=== PATIENT | female | born 2000 | race African-American/Black ===

== ENCOUNTER 2024-07-17 20:08 | Inpatient (IN) ==
[2024-07-17] MEDS ORDERED: hydrALAZINE INJ 20 MG/ML VIAL IVP PRN (21:17)
[2024-07-17] MEDS ORDERED: METHYLERGONOVINE 0.2 MG/ML VIAL IM PRN (21:17)
[2024-07-17] MEDS ORDERED: miSOPROStoL 200 MCG TABLET PR PRN (21:17)
[2024-07-17] MEDS ORDERED: ACETAMINOPHEN 500 MG TABLET PO PRN (21:17)
[2024-07-17] MEDS ORDERED: lidocaine 1% 20 ML MDV ID PRN (21:17)
[2024-07-17] MEDS ORDERED: fentaNYL 100 MCG/2 ML VIAL IVP PRN (21:17)
[2024-07-17] MEDS ORDERED: NIFEdipine 10 MG CAPSULE PO PRN (21:17)
[2024-07-17] MEDS ORDERED: TERBUTALINE 1 MG/ML VIAL SUBQ PRN (21:17)
[2024-07-17] MEDS ORDERED: TRANEXAMIC ACID IN NACL 1,000 MG/100 ML BAG IV PRN (21:17)
[2024-07-17] MEDS ORDERED: OXYTOCIN 10 UNIT/ML VIAL IM PRN (21:17)
[2024-07-17] MEDS ORDERED: ONDANSETRON ODT 4 MG TABLET PO PRN (21:17)
[2024-07-17] MEDS ORDERED: LABETALOL 20 MG/4 ML SYRINGE IVP PRN ×3 (21:17)
[2024-07-17] MEDS ORDERED: miSOPROStoL 200 MCG TABLET BC PRN (21:17)
[2024-07-17] MEDS ORDERED: SODIUM CHLORIDE FLUSH 0.9% 10 ML SYRINGE IVP PRN (21:17)
[2024-07-17] MEDS ORDERED: OXYTOCIN/SODIUM CHLORIDE 500 ML IV PRN (21:17)
[2024-07-17] MEDS ORDERED: METOCLOPRAMIDE 10 MG/2 ML VIAL IVP PRN (21:17)
--- NOTE | 2024-07-17 21:18 | HISTORY & PHYSICAL EXAMINATION ---
Admit History Visit Reason Visit Reason: Other (admitted for induction due to growth restrictions) : 2 Parity: 1 Care: positive [facility] and Other (in [facility] with [employer]. records reviewed last week.) Complications This : positive Other (recent ultrasound showing growth restriction. ) Smoking Status: Never smoker Mother's Labs Mother's Blood Type: positive O Mother's RH: positive Positive GBS: positive Group B Step Negative Rubella Status: positive Immune Other Maternal History Other Maternal History: admitted for labor induction due to fetus small on US on Monday. NDICATIONS: Uterine size-date discrepancy OUTSIDE/PRIOR DATING DATA: Last menstrual period (LMP): 10/20/2023. LMP-based estimated date of delivery (SENAIT): 07/26/2024. First dating scan (date and location): 01/22/2024. Estimated date of delivery (SENAIT) from first dating scan: 08/01/2024. The below data below was generated using the clinical SENAIT of 07/26/2024 TECHNIQUE: Real-time scanning was performed of the fetus, with image documentation and biometric measurements. Endovaginal scanning: Not performed. COMPARISON: No available prior exam. FINDINGS: General: A single living intrauterine gestation is present. Presentation: Vertex Placenta: Placental position is posterior, without previa. Amniotic fluid index: 12.4 cm, within normal limits for gestational age. heart rate: 132 beats per minute. Maternal cervical canal: Not well-visualized. biometrics: Biparietal diameter: 8.6 cm, 34 weeks 4 days, 2nd percentile Head circumference: 31.6 cm, 35 weeks 3 days, 1st percentile Abdominal circumference: 30.0 cm, 34 weeks 0 days, less than 1st percentile Femur length: 7.2 cm, 36 weeks 5 days, 16th percentile Estimated gestational age from initial scan: 38 weeks 3 days Composite gestational age from present scan: 35 weeks 1 day Estimated weight and percentile: 2565 g, 4th percentile Measurement variability in biometric dating: +/- 10 days from 12-20 weeks gestation, +/- 2 weeks from 20-30 weeks gestation, +/- 3 weeks at 30 weeks gestation or more. Other: Umbilical artery Doppler performed. Systolic-diastolic ratio at the placental insertion is 2.3, abdominal insertion is 2.7, and at the midportion is 2.1 IMPRESSION: 1.Single live intrauterine at 38 weeks 3 days by clinical gestational age. 2.Estimated weight is at the 4th percentile for gestational age. Biparietal diameter, head circumference, and abdominal circumference are all less than the 2nd percentile. 3.Abnormal umbilical artery Doppler with preserved diastolic flow. 4.Amniotic fluid index is within normal limits at 12.4 cm. Reviewed by: Marito Del Angel MD on 07/15/2024 When I looked up the doppler values they were within range that I could see. and the tech also told me they were in range. 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 wants to wait for epidural. Specific Issues/Plans LMP: 10/20/2023 SENAIT by LMP: 07/26/2024 Date:01/22/2024 @12+4 ( 08/01/2024) Final SENAIT: 07/26/2024 Problems: Transfers from [place] at 26 weeks -Records requested- received FAS and chart notes. some labs. back now and reviewed. -FOB sickle cell carrier- Mom negative new FOB. his first baby. He is former Marine. Chiquita was born in [facility] in a [place]. Came to [place] and that is where she grew up. Blood type: O+ Antibody screen: negative Initial H/H: 12.9/38.2. Plt: 346 Rubella: Immune Varicella: NON immune- [place] records state two dose series in 2017 and so she does not need more. HBsAg: NR Hep C: NR RPR/AB-EIA: NR HIV: NR PAP: 08/29/2022 NILM Gonorrhea/Chlamydia: Negative HSV Screen: denies self/partner Genetic testing: NIPT- Negative AFP ordered. CF 09/2019- Neg, SMA 09/2019- 2 copies COVID: x3, [place] 2023 Second Trimester Anatomy Scan: Placenta:fundal/posterior Cord: LIZZIE: wnl EFW: 330g 50 gm OGCT: 112 Tdap: 05/09/24 Breast Pump Rx:05/09/24 Antibody screen: negative 3rd trimester CBC: 12.3/36.4/304 3rd trimester HIV: NR RPR: NR GBS: Negative Contraception: Considering Nexplanon, Depo, OCPs HPI Diagnosis/Indication for NST: Intrauterine growth restriction NST Procedure NST Procedure: Reactive for of 32 weeks gestation or more. NST tracing contains at least two heart rate accelerations that are at least 15 beats per minute above the baseline rate and lasting at least 15 seconds from onset to return to baseline within a twenty minute period. Results and Plan Findings/Impression: reactive NST Plan: proceed with labor induction Meds/Allgy Home Medications Ambulatory Orders Medication Instructions Recorded Confirmed fluoxetine 20 mg capsule (Prozac) 20 mg PO QDAY 03/28/24 07/17/24 vits,calcium 21-iron fum 1 tab PO DAILY 03/28/24 07/17/24 14 mg iron-folic acid 400 mcg tablet ( Complete) famotidine 20 mg tablet 20 mg PO BID #60 tabs 06/12/24 07/17/24 Allergies Allergies Allergy/AdvReac Type Severity Reaction Status Date / Time No Known Drug Allergies Allergy Verified 06/25/24 18:48 [facility] Medical History Medical History (Updated 07/17/24 @ 21:26 by Annelise Vieira MD) Induced (2016) Vaginal delivery (2019) 6lb1oz baby boy Family History Family History (Updated 04/25/24 @ 14:51 by Kourtney Perry MA) Son Cat allergies Dog allergy due to both airborne and skin contact Uncle Diabetes Sister Mental disorder Brother Alcoholism Father Alcoholism Social History Social History Smoking Status: Never smoker Living arrangement: At home Relationship: Do you feel safe in your home environment?: Yes Suffered physical, verbal, emotional, or financial abuse?: No History of Abuse: No ETOH Use: None Substance Use: denies use POLST Patient has POLST: No Review of Systems Cardiovascular Denies: Irregular heart rate or shortness of breath with exertion Respiratory Denies: Shortness of breath Gastrointestinal Denies: Abdominal pain Neurological Denies: Headache Physical Abdominal Exam Contraction Frequency (min/apart): no significant contractions on the monitor Uterine Resting Tone: positive Soft Monitoring Heart Rate Baseline: 145 Strip Review: positive Category I Presentation Presentation: positive Vertex Vaginal Exam Membranes: positive Membranes intact Dilation (in cm): 1.5 Effacement (%): 60 Station: positive -3 Cervical Position: positive Posterior Speculum Exam Speculum Exam Performed: positive No Other Notes Labor Progress Note/Additional Text: not in labor. no signs of preeclampsia Plan for Labor Plan For Labor I expect patient to be DC'd or transferred within 96 hours.: Yes Conclusion/Plan Problem List (1) Encounter for planned induction of labor: Plan: due to #2. will start with miso. plan reviewed. consents signed in office earlier today. (2) Maternal care for restricted growth, third trimester, delivered:
[2024-07-17] MEDS ORDERED: CALCIUM CARBONATE CHEW 500 MG TABLET PO PRN (21:31)
[2024-07-17 21:32] LABS: BASOPHILS % (AUTO) 0.4 %; EOSINOPHILS % (AUTO) 0.3 %; HCT - HEMATOCRIT 38.5 % (37.0-47.0); HGB - HEMOGLOBIN 12.9 g/dL (12.0-16.0); LYMPHOCYTES # (AUTO) 1.8 10^3/uL (1.5-3.5); LYMPHOCYTES % (AUTO) 25.7 %; MEAN CORPUSCULAR HEMOGLOBIN 29.3 pg (27.0-31.0); MEAN CORPUSCULAR HGB CONC 33.5 g/dL (32.0-36.0); MEAN CORPUSCULAR VOLUME 87.3 fL (81.0-99.0); MEAN PLATELET VOLUME 10.5 fL (7.9-10.8); MONOCYTES # (AUTO) 0.5 10^3/uL (0.0-1.0); MONOCYTES % (AUTO) 7.7 %; NEUTROPHILS # (AUTO) 4.6 10^3/uL (1.5-6.6); NEUTROPHILS % (AUTO) 65.6 %; PLT - PLATELET COUNT 303 10^3/uL (130-450); RED BLOOD COUNT 4.41 10^6/uL (4.20-5.40); RED CELL DISTRIBUTION WIDTH 13.7 % (12.0-15.0)
[2024-07-17] MEDS: miSOPROStoL 100 MCG TABLET VG SCH (21:37)
[2024-07-17 21:45] LABS: ALBUMIN 3.7 g/dL (3.2-5.5); ALBUMIN/GLOBULIN RATIO 1.1 (1.0-2.2); BILIRUBIN,TOTAL 0.5 mg/dL (0.2-1.0); CALCIUM 8.8 mg/dL (8.5-10.3); CREATININE 0.5 mg/dL (0.6-1.3); POTASSIUM 3.9 mmol/L (3.5-4.5)
[2024-07-17] MEDS ORDERED: SODIUM CHLORIDE FLUSH 0.9% 10 ML SYRINGE IVP SCH (22:00)
[2024-07-18] MEDS: FAMOTIDINE 20 MG TABLET PO PRN (01:40)
[2024-07-18] MEDS: CALCIUM CARBONATE CHEW 500 MG TABLET PO PRN (02:00)
[2024-07-18] MEDS: LACTATED RINGERS 1,000 ML IV PRN (06:27)
[2024-07-18] MEDS ORDERED: PRENATAL VITAMIN TABLET PO SCH (08:00)
[2024-07-18] MEDS ORDERED: [UNRECOGNIZED DRUG - OTHER] PO SCH (09:00)
[2024-07-18] MEDS ORDERED: IRON PO SCH (09:00)
[2024-07-18] MEDS ORDERED: FAMOTIDINE 20 MG TABLET PO SCH (09:00)
[2024-07-18] MEDS ORDERED: FLUoxetine 10 MG CAPSULE PO SCH (09:00)
--- NOTE | 2024-07-18 11:37 | PHARMACY PROGRESS NOTE ---
Best Possible Medication History Admit Date and Time: 07/17/247 Home Medications Medication Instructions Recorded Confirmed Type vits,calcium 21-iron fum 1 tab PO DAILY 03/28/24 07/18/24 History 14 mg iron-folic acid 400 mcg tablet ( Complete) famotidine 20 mg tablet 20 mg PO BID #60 tabs 06/12/24 07/18/24 Rx fluoxetine 20 mg capsule 20 mg PO DAILY 07/18/24 07/18/24 History Processed by: Pharmacy Medications reviewed in ED?: No Medication History completed: Yes Secondary Source(s): Physician records, Pharmacy records and Insurance records [facility] Statement: As the person ultimately responsible for medication therapy, providers are able to order a medication from an existing home medication list in [facility] via the "Reconcile Routine" prior to Confirmation of that medication by marketing support coordinator. Such practice is discouraged except when the physician, in their clinical judgment, deems that a medical need exists for a medication without regard to previous use.
[2024-07-18] MEDS: OXYTOCIN/SODIUM CHLORIDE 500 ML IV SCH (11:38)
[2024-07-18] MEDS ORDERED: ROPIVACAINE 0.2% 200 MG/100 ML BAG EP ONE (13:08)
[2024-07-18] MEDS ORDERED: NALBUPHINE 10 MG/ML AMP IVP PRN (13:59)
[2024-07-18] MEDS ORDERED: NALOXONE 0.4 MG/ML VIAL IVP PRN ×2 (13:59→16:36)
[2024-07-18] MEDS ORDERED: LACTATED RINGERS 500 ML IV ONE (13:59)
[2024-07-18] MEDS ORDERED: ePHEDrine 50 MG/ML VIAL IVP PRN (13:59)
[2024-07-18] MEDS ORDERED: METOCLOPRAMIDE 10 MG/2 ML VIAL IVP PRN (13:59)
[2024-07-18] MEDS ORDERED: ONDANSETRON 4 MG/2 ML VIAL IVP PRN (13:59)
[2024-07-18] MEDS ORDERED: diphenhydrAMINE INJ 50 MG/ML VIAL IVP PRN (13:59)
[2024-07-18] MEDS ORDERED: ROPIVACAINE 0.2% 200 MG/100 ML BAG EP PRN (13:59)
--- NOTE | 2024-07-18 14:06 | ANESTHESIA PROCEDURE NOTE ---
Pre-Anesthesia VS, & Labs Diagnosis Surgical Diagnosis:: IOL for IUGR Procedure Procedure: placement of labor epidural Vitals Vital Signs: Temp Pulse Resp BP 37.1 C 78 17 107/74 07/17/24 21:55 07/17/24 21:55 07/17/24 21:55 07/17/24 21:55 Height (in): 5 ft 3 in Weight (kg): 74 kg Body Mass Index: 28.9 BMI Classification: Overweight NPO Last Fluid Intake: taking clears now Is Patient ?: Yes Estimated Due Date:: 07/18/24 Lab Results Current Lab Results: Laboratory Tests 07/17/24 21:20: WBC 7.0, RBC 4.41, Hgb 12.9, Hct 38.5, MCV 87.3, MCH 29.3, MCHC 33.5, RDW 13.7, Plt Count 303, MPV 10.5, Neut # (Auto) 4.6, Lymph # (Auto) 1.8, [place] # (Auto) 0.5, Eos # (Auto) 0.0, Baso # (Auto) 0.0, Absolute Nucleated RBC 0.00, Nucleated RBC % 0.0, Sodium 135, Potassium 3.9, Chloride 106, Carbon Dioxide 20 L, Anion Gap 9.0, BUN 5 L, Creatinine 0.5 L, Estimated GFR (MDRD) 181, Glucose 79, Calcium 8.8, Total Bilirubin 0.5, AST 19, ALT 18, Alkaline Phosphatase 193 H, Total Protein 7.0, Albumin 3.7, Globulin 3.3, Albumin/Globulin Ratio 1.1, Blood Type O POSITIVE, Antibody Screen NEGATIVE Lab results reviewed: Yes 07/17/24 21:20 07/17/24 21:20 Meds/Allgy Home Medications Ambulatory Orders Medication Instructions Recorded Confirmed vits,calcium 21-iron fum 1 tab PO DAILY 03/28/24 07/18/24 14 mg iron-folic acid 400 mcg tablet ( Complete) famotidine 20 mg tablet 20 mg PO BID #60 tabs 06/12/24 07/18/24 fluoxetine 20 mg capsule 20 mg PO DAILY 07/18/24 07/18/24 Allergies Allergies Allergy/AdvReac Type Severity Reaction Status Date / Time No Known Drug Allergies Allergy Verified 06/25/24 18:48 [facility] Medical History Medical History (Updated 07/17/24 @ 21:26 by Annelise Vieira MD) Induced (2017) Vaginal delivery (2019) 6lb1oz baby boy Family History Family History Son Cat allergies Dog allergy due to both airborne and skin contact Uncle Diabetes Sister Mental disorder Brother Alcoholism Father Alcoholism Social History Social History Smoking Status: Never smoker Do you dip or chew tobacco?: No Living arrangement: At home Relationship: Do you feel safe in your home environment?: Yes Suffered physical, verbal, emotional, or financial abuse?: No History of Abuse: No ETOH Use: None Substance Use: denies use POLST Patient has POLST: No POLST Status: Full Code Anesthesia Exam (Expanded) Exam General: Mild distress Dental: WNL Mouth Openin Fingerbreadth Neck Mobility: Normal Mallampati classification: II Thyromental Distance: 4-6 cm Plan Plan Anesthesia Type: Epidural Consent for Procedure(s) Verified and Reviewed: Yes Code Status: Attempt Resuscitation ASA Classification ASA classification: 2-Mild systemic disease Is this case an emergency?: No
[2024-07-18] MEDS ORDERED: OXYTOCIN/SODIUM CHLORIDE 500 ML IV PRN (16:36)
[2024-07-18] MEDS ORDERED: LABETALOL 5 MG/1 ML 20 ML MDV IVP PRN (16:36)
[2024-07-18] MEDS ORDERED: NIFEdipine 10 MG CAPSULE PO PRN (16:36)
[2024-07-18] MEDS ORDERED: hydrALAZINE INJ 20 MG/ML VIAL IVP PRN ×2 (16:36)
[2024-07-18] MEDS ORDERED: LABETALOL 20 MG/4 ML SYRINGE IVP PRN ×2 (16:36)
[2024-07-18] MEDS ORDERED: SIMETHICONE CHEW 80 MG TABLET PO PRN (16:36)
[2024-07-18] MEDS: IBUPROFEN 600 MG TABLET PO PRN (18:04)
[2024-07-18] MEDS: ACETAMINOPHEN 500 MG TABLET PO PRN (21:58)
[2024-07-18] MEDS: DOCUSATE SODIUM 100 MG CAPSULE PO SCH (21:59)
[2024-07-19 08:47] VITALS: TEMP 97.9
--- NOTE | 2024-07-19 09:24 | Discharge Summary ---
"Discharge Summary Admit Date: 07/17/24 Discharge Date: 07/19/24 Discharging Provider: Dr. Chio Blake Code Status: Attempt Resuscitation Discharge Facility [facility]: [facility] DIAGNOSES Admission Diagnoses: growth restriction, at 38+5 wks Discharge Diagnoses with Status of Each Condition: Same now s/p induction of labor and delivery HPI History of Present Illness: Patient is a 24 yo G3 now admitted at 38+5 wks for induction of labor for growth restriction (4th percentile). course otherwise notable for below: LMP: 10/20/2023 SENAIT by LMP: 07/26/2024 [place] Date:01/22/2024 @12+4 ( 08/01/2024) Final SENAIT: 07/26/2024 Problems: Transfers from [facility] at 26 weeks -Records requested- received FAS and chart notes. some labs. back now and reviewed. -FOB sickle cell carrier- Mom negative new FOB. his first baby. He is former [employer]. Chiquita was born in [facility] in a refugee camp. Came to [place] and that is where she grew up. Blood type: O+ Antibody screen: negative Initial H/H: 12.9/38.2. Plt: 346 Rubella: Immune Varicella: NON immune- [place] records state two dose series in 2017 and so she does not need more. HBsAg: NR Hep C: NR RPR/AB-EIA: NR HIV: NR PAP: 08/29/2022 NILM Gonorrhea/Chlamydia: Negative HSV Screen: denies self/partner Genetic testing: NIPT- Negative AFP ordered. CF 09/2019- Neg, SMA 09/2019- 2 copies COVID: x3, [place] Second Trimester Anatomy Scan: Placenta:fundal/posterior Cord: LIZZIE: wnl EFW: 330g 50 gm OGCT: 112 Tdap: 05/09/24 Breast Pump Rx:05/09/24 Antibody screen: negative 3rd trimester CBC: 12.3/36.4/304 3rd trimester HIV: NR RPR: NR GBS: Negative Contraception: Considering Nexplanon, Depo, OCPs CONSULTS | PROCEDURES Consultations: None Procedures: , induction of labor HOSPITAL COURSE Hospital Course: Patient admitted, and labor induced with misoprostol. She progressed and had an uncomplicated vaginal delivery of a baby girl. , the patient has done well. She hase been afebrile with normal/stable VS. She has been ambulating, tolerating regular diet, and having no pain concerns (just cramping with infant feeding). ALLERGIES Allergies Allergy/AdvReac Type Severity Reaction Status Date / Time No Known Drug Allergies Allergy Verified 06/25/24 18:48 MEDICATIONS Ambulatory Orders Medication Instructions Recorded Confirmed vits,calcium 21-iron fum 1 tab PO DAILY 03/28/24 07/18/24 14 mg iron-folic acid 400 mcg tablet ( Complete) famotidine 20 mg tablet 20 mg PO BID #60 tabs 06/12/24 07/18/24 fluoxetine 20 mg capsule 20 mg PO DAILY 07/18/24 07/18/24 PHYSICAL EXAM AT DISCHARGE General Appearance: positive No acute distress and Alert Eyes Bilateral: positive Normal inspection Neck: positive Nml inspection Respiratory: positive No respiratory distress and Breath sounds nml Cardiovascular: positive Regular rate & rhythm and No murmur Abdomen: positive Non-tender, No distention and Other (Uterus non-tender at U-1) Extremities: positive Non-tender and Full ROM Neurologic/Psychiatric: positive Oriented x3, Motor nml and Mood/affect nml LABS 07/17/24 21:20 07/17/24 21:20 QUALITY (Female Hip Fx Only) Was patient sent home on osteoporosis medication?: No FOLLOW UP Follow Up: 6 wks ; please call clinic to schedule appt TIME SPENT Time Spent in Discharge (Minutes): 20 Discharge Plan Discharge Patient Disposition: Home, Self Care Condition: Good Prescriptions: Continued famotidine 20 mg tablet 20 mg PO BID Qty: 60 2RF fluoxetine 20 mg capsule 20 mg PO DAILY Complete 14 mg iron- 400 mcg tablet 1 tab PO DAILY Activity Restrictions: see below Activity Restrictions/Additional Instructions: -Pelvic rest for 6 weeks -Easy exercise until 6 wks, then increase as tolerated -Ibuprofen 600 mg every 6 hrs or 800 mg every 8 hrs for next 48-72 hrs, then as needed (patient plans to purchase over the counter) Diet: Regular Print Language: Latvian Patient Instructions: Vaginal After Follow-up Care: Jim Orellana MD [Primary Care Provider] -"
[2024-07-19 12:59] VITALS: BP 132/91; O2SAT 100
--- NOTE | 2024-07-19 19:02 | Labor Flowsheet ---
Labor Flowsheet Datetime Report Generated by CPN: 07/19/2024 19:02 Datetime: 07/19/2024 12:58 VITAL SIGNS NBP Sys/Merary/Mean (mmHg): 132 : 91 : 98 Pulse: 68 Datetime: 07/18/2024 18:08 Respirations: 16 SpO2 (%): 99 Temperature (C): 37.0 Temperature Route: Axillary Datetime: 07/18/2024 15:06 Stage of : Recovery Datetime: 07/18/2024 15:05 Membranes Ruptured Date/Time: 07/18/2024 12:53 MEDICATIONS Cervical Ripening Agents: Cytotec @ Datetime: 07/18/2024 14:58 UTERINE ACTIVITY Monitor Mode: External Frequency (min): 1.5-2.5 Quality: Strong Duration (sec): 40-60 Pattern: Normal: <= 5 Contractions in 10 Minutes Resting Tone (Palpate): Relaxed Pitocin Checklist: At Least 1 Acceleration of 15 bpm x 15 Seconds in 30 Minutes or Adequate Variabi lity; No More than 1 Late Deceleration Occurred in Past 30 Minutes; No More than 2 Variable Decelerat ions > 60 Seconds in Duration and decreasing >60 bpm in 30 minutes; No More than 5 Uterine Contractio ns in 10 Minutes for any 20 Minute Interval; Uterus Palpates Soft between Contractions; IUPC Resting Tone less than 25 mmHg ASSESSMENT A Monitor Mode: Telemetry FHR Baseline Rate : 130 Variability: Moderate 6-25 bpm Accelerations: 15X15 Decelerations: Late Datetime: 07/18/2024 14:55 LaborFlag: Labor Datetime: 07/18/2024 14:45 VAGINAL EXAM Dilatation (cm): 10.0 Effacement (%): 100 Station: 3 Exam by: ALVARO Veliz Datetime: 07/18/2024 14:25 Monitor Interventions for UA: [place] Adjusted PATIENT CARE Patient Position/Activity: Semi-Fowlers Datetime: 07/18/2024 14:18 Cervix, Position: Midposition Vaginal Exam Comments: Pt. states she is feeling a lot of vaginal pressure and would like to be rec hecked I/O Interventions: White Cath Inserted Patient Care Comments: pt. tolerated well, clear yellow urine draining. Datetime: 07/18/2024 12:53 Membrane Status: Ruptured Membranes Rupture Method: Spontaneous Amniotic Fluid Color: Clear Amniotic Fluid Amount: Large Datetime: 07/18/2024 12:30 FHR Baseline Changes: No Baseline Change Datetime: 07/18/2024 08:48 COMMUNICATION Communication: Provider at Bedside Datetime: 07/18/2024 08:32 Monitor Interventions for FHR: Ultrasound Adjusted Datetime: 07/18/2024 08:00 Contraction Comments: irritability Datetime: 07/18/2024 06:27 Actions for Decelerations: IV Bolus Datetime: 07/18/2024 05:40 Communication Comments: pt out of bath and back into bed Datetime: 07/17/2024 20:51 Medication Comments: reccommending miso induction with pt. pt agrees with plan Datetime: 07/17/2024 20:48 Vaginal Bleeding: None Cervix, Consistency: Moderate
--- NOTE | 2024-07-22 09:20 | DELIVERY NOTE ---
Delivery Note Delivery Method Delivery Method: positive Spontaneous vaginal delivery Cervical Ripening Method Cervical Ripening Method: positive Misoprostil (x3 for labor induction) Presentation Presentation: positive Vertex Nuchal Cord Nuchal Cord: positive Present (reduced) Amniotic Fluid Description Amniotic Fluid Description: positive Clear Episiotomy Type Episiotomy Type: positive None Laceration Laceration: positive None Delivery Outcome Delivery Date: 07/18/24 Delivery Time: 14:59 Delivery Outcome: positive Livebirth Walker Walker: positive Placed in direct skin contact with mother Cord Cord: positive 3 vessels Placenta Placenta: positive Intact Estimated Blood Loss Estimated Blood Loss (in cc): 100 Post Delivery Events Post Delivery Events: positive No post delivery events Delivery Comments (Free Text/Narrative) Delivery Comments (Free Text/Narrative): patient was induced at 38w4d for IUGR. Received Misoprostol vaginally x 3 and then was in active labor. received her epidural. She progressed to complete and felt ready to push over the next few hours. She was readied for delivery. She pushed thru 2 contractions. Her helped me deliver their baby girl, Alyson. The baby delivered in OA presentation. Nuchal cord was reduced. shoulders came easily. She was put on her momma's abdomen. I waited a few minutes to clamp and cut the cord. Placenta delivered spontaneously. It was very small and sent for pathology. Baby was also small. 2525 grams. She had no lacerations and very minimal bleeding. Apgars were 8/9. no complications.
== END 2024-07-19 18:40 | disposition home or self-care (01) | DRG 807 ==
LOC: WFO 20:08 → FBP 20:12
PROVIDERS: ADMIT Obstetrics & Gynecology; ATTEND Obstetrics & Gynecology